=== PATIENT | male | born 1950 | race Caucasian/White ===

== ENCOUNTER 2024-08-12 17:35 | Inpatient (IN) ==
[2024-08-12 18:46] LABS: ALT/SGPT 16 U/L (<40); AST/SGOT 36 U/L (<40); Albumin 4.2 gm/dL (3.2-5.2); Albumin/Globulin Ratio 1.1 (1.0-2.3); Alkaline Phosphatase 96 U/L (39-117); Bilirubin,Total 0.4 mg/dL (0.1-1.0); Blood Urea Nitrogen 14 mg/dL (8-23); Calcium 9.8 mg/dL (8.6-10.4); Carbon Dioxide 26 mmol/L (22-30); Chloride 96 mmol/L (96-108); Globulin 3.9 gm/dL (2.2-3.7); Glomerular Filtration Rate 100; Glucose 127 mg/dL (70-105); Sodium 137 mmol/L (133-145)
[2024-08-12 18:58] LABS: Basophils # (Auto) 0.05 K/mcL (0.00-0.30); Basophils % (Auto) 0.5 % (0.0-2.0); Eosinophils # (Auto) 0.18 K/mcL (0.00-0.70); Eosinophils % (Auto) 1.7 % (0.0-7.0); Hematocrit 38.9 % (40.1-51.0); Hemoglobin 12.5 g/dL (13.7-17.5); Lymphocytes # (Auto) 1.21 K/mcL (1.50-4.80); Lymphocytes % (Auto) 11.5 % (15.5-49.0); Mean Cell Volume 87.4 fL (80.0-100.0); Mean Corpuscular HGB Conc 32.1 g/dL (31.0-36.0); Mean Platelet Volume 10.5 fL (8.8-12.5); Monocytes # (Auto) 0.89 K/mcL (0.10-0.90); Monocytes % (Auto) 8.5 % (1.0-12.0); Neutrophils % (Auto) 77.6 % (38.0-78.0); Platelet Count 247 K/mcL (140-440); RBC 4.45 M/mcL (4.63-6.08); Red Cell Distribution Width 15.4 % (11.5-14.5); WBC 10.5 K/mcL (4.5-11.0)
[2024-08-12 22:14] LABS: Appearance,Urine CLEAR (Clear); Bilirubin,Urine Negative (Negative); Color,Urine YELLOW; Glucose,Urine (UA) Negative (Negative); Ketones,Urine 5 mg/dL (Negative); Leukocyte Esterase,Urine Negative /uL (Negative); Mucus,Urine FEW /hpf; Nitrate,Urine Negative (Negative); Protein,Urine Negative (Negative); Specific Gravity,Urine 1.015 (1.000-1.035); Urine Blood Negative (Negative); Urine RBC 1 /hpf (0-3); Urine Squamous Epithelial Cell < 1 /hpf (0-4); Urine WBC < 1 /hpf (0-4); Urobilinogen,Urine Negative
[2024-08-12] MEDS ORDERED: ONDANSETRON 4 MG/2 ML VIAL IV PRN (22:49)
[2024-08-12] MEDS ORDERED: DEXTROSE 31 GM ORAL.SUSP PO PRN (22:49)
[2024-08-12] MEDS ORDERED: DEXTROSE 50% 50 ML VIAL IV PRN (22:49)
[2024-08-12] MEDS: DOCUSATE SODIUM 100 MG CAPSULE PO SCH (22:59)
[2024-08-12] MEDS: INSULIN LISPRO 1 UNIT/0.01 ML UNIT SQ SCH (22:59)
[2024-08-12] MEDS: SENNOSIDES 1 TABLET PO SCH (23:00)
[2024-08-12] MEDS: 0.9 % SODIUM CHLORIDE 10 ML SYRINGE IV SCH (23:00)
[2024-08-13 06:36] LABS: Basophils # (Auto) 0.05 K/mcL (0.00-0.30); Basophils % (Auto) 0.7 % (0.0-2.0); Eosinophils % (Auto) 2.6 % (0.0-7.0); Hematocrit 35.5 % (40.1-51.0); Hemoglobin 11.5 g/dL (13.7-17.5); Lymphocytes % (Auto) 18.5 % (15.5-49.0); Mean Corpuscular HGB Conc 32.4 g/dL (31.0-36.0); Mean Platelet Volume 10.8 fL (8.8-12.5); Monocytes % (Auto) 9.2 % (1.0-12.0); Neutrophils % (Auto) 68.7 % (38.0-78.0); Platelet Count 232 K/mcL (140-440); RBC 4.13 M/mcL (4.63-6.08); Red Cell Distribution Width 15.3 % (11.5-14.5); WBC 7.6 K/mcL (4.5-11.0)
[2024-08-13] MEDS ORDERED: DEXTROSE 50% 50 ML SYRINGE IV PRN (06:38)
[2024-08-13] MEDS ORDERED: DEXTROSE 50% 50 ML VIAL IV PRN (07:24)
[2024-08-13] MEDS ORDERED: DEXTROSE 31 GM ORAL.SUSP PO PRN (07:24)
[2024-08-13 07:38] LABS: Estimated Average Glucose(eAG) 160 mg/dL; Hemoglobin A1C 7.2 % Hgb (4.0-6.0)
[2024-08-13] MEDS: INSULIN LISPRO 1 UNIT/0.01 ML UNIT SQ SCH (08:49)
[2024-08-13] MEDS: DIVALPROEX SODIUM ER 250 MG TABLET PO SCH ×2 (21:18→21:30)
[2024-08-13] MEDS: ARIPIPRAZOLE 5 MG TABLET PO ONE (21:18)
[2024-08-13] MEDS: ARIPIPRAZOLE 10 MG TABLET PO SCH (21:31)
[2024-08-14] MEDS: INSULIN GLARGINE, HUMAN 1 UNIT/0.01 ML SQ SCH (08:36)
[2024-08-14] MEDS: VENLAFAXINE 150 MG CAP.XL.24H PO SCH (08:37)
[2024-08-14] MEDS: ATORVASTATIN 40 MG TABLET PO SCH (08:37)
[2024-08-14] MEDS: ARIPIPRAZOLE 5 MG TABLET PO SCH (08:37)
[2024-08-14] MEDS: ASPIRIN 81 MG TAB.CHEW PO SCH (08:37)
[2024-08-14] MEDS: NICOTINE 7 MG PATCH TOPICAL SCH (09:16)
[2024-08-15 05:40] LABS: Basophils # (Auto) 0.07 K/mcL (0.00-0.30); Basophils % (Auto) 0.7 % (0.0-2.0); Eosinophils # (Auto) 0.24 K/mcL (0.00-0.70); Eosinophils % (Auto) 2.3 % (0.0-7.0); Hematocrit 36.7 % (40.1-51.0); Hemoglobin 11.8 g/dL (13.7-17.5); Lymphocytes # (Auto) 2.08 K/mcL (1.50-4.80); Mean Cell Volume 87.4 fL (80.0-100.0); Mean Corpuscular HGB Conc 32.2 g/dL (31.0-36.0); Monocytes % (Auto) 7.7 % (1.0-12.0); Platelet Count 234 K/mcL (140-440); WBC 10.4 K/mcL (4.5-11.0)
[2024-08-15 05:57] LABS: Blood Urea Nitrogen 15 mg/dL (8-23); Calcium 9.1 mg/dL (8.6-10.4); Carbon Dioxide 26 mmol/L (22-30); Chloride 98 mmol/L (96-108); Glomerular Filtration Rate 100; Glucose 140 mg/dL (70-105); Potassium 4.1 mmol/L (3.3-5.1); Sodium 134 mmol/L (133-145)
[2024-08-16 06:28] LABS: Basophils # (Auto) 0.08 K/mcL (0.00-0.30); Basophils % (Auto) 0.9 % (0.0-2.0); Eosinophils # (Auto) 0.21 K/mcL (0.00-0.70); Eosinophils % (Auto) 2.2 % (0.0-7.0); Hematocrit 37.1 % (40.1-51.0); Hemoglobin 12.1 g/dL (13.7-17.5); Lymphocytes # (Auto) 1.72 K/mcL (1.50-4.80); Lymphocytes % (Auto) 18.4 % (15.5-49.0); Mean Cell Volume 85.7 fL (80.0-100.0); Mean Corpuscular HGB Conc 32.6 g/dL (31.0-36.0); Monocytes # (Auto) 0.77 K/mcL (0.10-0.90); Monocytes % (Auto) 8.2 % (1.0-12.0); Neutrophils % (Auto) 69.9 % (38.0-78.0); Platelet Count 238 K/mcL (140-440); RBC 4.33 M/mcL (4.63-6.08); Red Cell Distribution Width 14.9 % (11.5-14.5); WBC 9.4 K/mcL (4.5-11.0)
[2024-08-16 07:21] LABS: Blood Urea Nitrogen 19 mg/dL (8-23); Carbon Dioxide 24 mmol/L (22-30); Chloride 102 mmol/L (96-108); Glomerular Filtration Rate 100; Glucose 154 mg/dL (70-105); Potassium 4.1 mmol/L (3.3-5.1); Sodium 137 mmol/L (133-145)
[2024-08-17] MEDS: ACETAMINOPHEN 325 MG TABLET PO PRN (18:48)
[2024-08-17] MEDS: hydrOXYzine 25 MG TABLET PO ONE (20:45)
[2024-08-17] MEDS: MELATONIN 3 MG TABLET PO SCH (20:45)
== END 2024-08-19 11:38 | DRG 179 ==
LOC: MEDSUR 17:35 → ED 17:35 → MEDSUR 23:21
PROVIDERS: ADMIT Internal Medicine; ATTEND Student in an Organized Health Care Education/Training Program

== ENCOUNTER 2024-09-29 15:42 | Inpatient (IN) ==
[2024-09-29] MEDS ORDERED: IOPAMIDOL 100 ML BOTTLE IV ONE (15:43)
[2024-09-29] MEDS: 0.9 % SODIUM CHLORIDE 1,000 ML IV ONE (16:21)
[2024-09-29] MEDS: cefTRIAXone 1 GM VIAL IV ONE ×2 (17:01→22:20)
[2024-09-29] MEDS: VANCOMYCIN 1,500 MG in 0.9 % SODIUM CHLORIDE 500 ML IV ONE (18:00)
[2024-09-29] MEDS: VANCOMYCIN 1,000 MG in 0.9 % SODIUM CHLORIDE 250 ML IV ONE (18:11)
[2024-09-29] MEDS ORDERED: VANCOMYCIN PER PHARMACY IV SCH (19:54)
[2024-09-29] MEDS ORDERED: SENNOSIDES 1 TABLET PO PRN (21:38)
[2024-09-29] MEDS ORDERED: LACTULOSE 20 GM/30 ML ORAL.SOL PO PRN (21:38)
[2024-09-29] MEDS ORDERED: ONDANSETRON 4 MG/2 ML VIAL IV PRN (21:38)
[2024-09-29] MEDS: LACTATED RINGERS 1,000 ML IV SCH ×2 (21:54→23:00)
[2024-09-29 22:07] LABS: C-Reactive Protein 9.23 mg/dL (0.03-0.80)
[2024-09-29] MEDS: DOCUSATE SODIUM 100 MG CAPSULE PO SCH (22:16)
[2024-09-29] MEDS: HEPARIN 5,000 UNIT/ML VIAL SQ SCH (22:20)
[2024-09-29] MEDS: 0.9 % SODIUM CHLORIDE 10 ML SYRINGE IV SCH (22:20)
[2024-09-29] MEDS: ACETAMINOPHEN 650 MG/65 ML BAG IV PRN (23:12)
[2024-09-30] MEDS ORDERED: VANCOMYCIN 1,000 MG in 0.9 % SODIUM CHLORIDE 250 ML IV ONE (07:00)
[2024-09-30 07:01] LABS: Appearance,Urine Clear (Clear); Bilirubin,Urine Negative (Negative); Color,Urine Yellow; Glucose,Urine (UA) Negative (Negative); Ketones,Urine 80 mg/dL (Negative); Leukocyte Esterase,Urine Negative /uL (Negative); Nitrate,Urine Negative (Negative); PH,Urine 7.5 (5.0-9.0); Protein,Urine 100 mg/dL (Negative); Urine Blood Trace-intact ery/mcL (Negative); Urine RBC 10 /hpf (0-3); Urine Squamous Epithelial Cell 2 /hpf (0-4); Urine WBC 0 /hpf (0-4); Urobilinogen,Urine Normal
[2024-09-30 07:09] LABS: Basophils # (Auto) 0.15 K/mcL (0.00-0.30); Basophils % (Auto) 0.7 % (0.0-2.0); Eosinophils # (Auto) 0.11 K/mcL (0.00-0.70); Eosinophils % (Auto) 0.5 % (0.0-7.0); Hematocrit 34.7 % (40.1-51.0); Hemoglobin 11.1 g/dL (13.7-17.5); Lymphocytes # (Auto) 1.69 K/mcL (1.50-4.80); Lymphocytes % (Auto) 8.1 % (15.5-49.0); Mean Cell Volume 89.9 fL (80.0-100.0); Monocytes # (Auto) 1.96 K/mcL (0.10-0.90); Monocytes % (Auto) 9.4 % (1.0-12.0); Neutrophils % (Auto) 80.7 % (38.0-78.0); Platelet Count 243 K/mcL (140-440); RBC 3.86 M/mcL (4.63-6.08); Red Cell Distribution Width 16.4 % (11.5-14.5); WBC 20.9 K/mcL (4.5-11.0)
[2024-09-30 07:16] LABS: Phosphorous 2.6 mg/dL (2.5-4.5)
[2024-09-30 07:18] LABS: ALT/SGPT 14 U/L (<40); AST/SGOT 17 U/L (<40); Albumin 3.6 gm/dL (3.2-5.2); Albumin/Globulin Ratio 0.8 (1.0-2.3); Alkaline Phosphatase 68 U/L (39-117); Bilirubin,Total 0.5 mg/dL (0.1-1.0); Blood Urea Nitrogen 21 mg/dL (8-23); Calcium 9.2 mg/dL (8.6-10.4); Carbon Dioxide 28 mmol/L (22-30); Chloride 99 mmol/L (96-108); Globulin 4.5 gm/dL (2.2-3.7); Glomerular Filtration Rate 108; Glucose 158 mg/dL (70-105); Potassium 4.4 mmol/L (3.3-5.1); Sodium 137 mmol/L (133-145)
[2024-09-30 08:00] LABS: Hemoglobin A1C 6.3 % Hgb (4.0-6.0)
[2024-09-30] MEDS: cefTRIAXone 2 GM in DEXTROSE 5% IN WATER 50 ML IV SCH (11:52)
[2024-09-30] MEDS: AMPICILLIN SODIUM/SULBACTAM NA 3 GM in 0.9 % SODIUM CHLORIDE 100 ML IV SCH (13:22)
[2024-10-01 07:02] LABS: Basophils # (Auto) 0.12 K/mcL (0.00-0.30); Basophils % (Auto) 0.7 % (0.0-2.0); Eosinophils # (Auto) 0.21 K/mcL (0.00-0.70); Eosinophils % (Auto) 1.3 % (0.0-7.0); Hemoglobin 10.5 g/dL (13.7-17.5); Lymphocytes # (Auto) 1.69 K/mcL (1.50-4.80); Lymphocytes % (Auto) 10.4 % (15.5-49.0); Mean Cell Volume 88.9 fL (80.0-100.0); Mean Corpuscular HGB Conc 31.8 g/dL (31.0-36.0); Mean Platelet Volume 11.7 fL (8.8-12.5); Monocytes # (Auto) 1.39 K/mcL (0.10-0.90); Monocytes % (Auto) 8.5 % (1.0-12.0); Neutrophils % (Auto) 78.8 % (38.0-78.0); Platelet Count 226 K/mcL (140-440); RBC 3.71 M/mcL (4.63-6.08); WBC 16.3 K/mcL (4.5-11.0)
[2024-10-01 07:04] LABS: ALT/SGPT 16 U/L (<40); AST/SGOT 18 U/L (<40); Albumin 3.3 gm/dL (3.2-5.2); Albumin/Globulin Ratio 0.8 (1.0-2.3); Alkaline Phosphatase 64 U/L (39-117); Bilirubin,Total 0.4 mg/dL (0.1-1.0); Blood Urea Nitrogen 14 mg/dL (8-23); Calcium 8.7 mg/dL (8.6-10.4); Carbon Dioxide 26 mmol/L (22-30); Chloride 98 mmol/L (96-108); Globulin 4.1 gm/dL (2.2-3.7); Glomerular Filtration Rate 118; Glucose 150 mg/dL (70-105); Potassium 3.8 mmol/L (3.3-5.1); Sodium 137 mmol/L (133-145)
[2024-10-01] MEDS: ARIPIPRAZOLE 5 MG TABLET PO SCH (09:37)
[2024-10-01] MEDS: DIVALPROEX 125 MG CAP.SPRINK PO SCH (09:37)
[2024-10-01] MEDS: ASPIRIN 81 MG TAB.CHEW PO SCH (09:37)
[2024-10-01] MEDS: CYANOCOBALAMIN (VITAMIN B-12) 500 MCG TABLET PO SCH (09:37)
[2024-10-01] MEDS: ATORVASTATIN 40 MG TABLET PO SCH (09:37)
[2024-10-01] MEDS: VENLAFAXINE 150 MG CAP.XL.24H PO SCH (10:33)
[2024-10-01] MEDS: PROPRANOLOL 80 MG CAP.XL.24H PO SCH (11:29)
[2024-10-01] MEDS: 0.9 % SODIUM CHLORIDE 1,000 ML IV SCH (13:09)
[2024-10-01] MEDS: INSULIN GLARGINE, HUMAN 1 UNIT/0.01 ML SQ SCH (20:34)
[2024-10-01] MEDS ORDERED: DEXTROSE 50% 50 ML VIAL IV PRN (23:21)
[2024-10-01] MEDS ORDERED: DEXTROSE 31 GM ORAL.SUSP PO PRN (23:21)
[2024-10-02 05:57] LABS: Basophils % (Auto) 0.9 % (0.0-2.0); Eosinophils # (Auto) 0.48 K/mcL (0.00-0.70); Eosinophils % (Auto) 4.2 % (0.0-7.0); Hematocrit 30.6 % (40.1-51.0); Hemoglobin 9.8 g/dL (13.7-17.5); Lymphocytes # (Auto) 1.73 K/mcL (1.50-4.80); Lymphocytes % (Auto) 15.2 % (15.5-49.0); Mean Cell Volume 88.4 fL (80.0-100.0); Mean Platelet Volume 11.1 fL (8.8-12.5); Monocytes # (Auto) 0.88 K/mcL (0.10-0.90); Monocytes % (Auto) 7.8 % (1.0-12.0); Neutrophils % (Auto) 71.6 % (38.0-78.0); Platelet Count 226 K/mcL (140-440); RBC 3.46 M/mcL (4.63-6.08); Red Cell Distribution Width 15.8 % (11.5-14.5); WBC 11.4 K/mcL (4.5-11.0)
[2024-10-02 06:16] LABS: C-Reactive Protein 7.77 mg/dL (0.03-0.80)
[2024-10-02 06:30] LABS: ALT/SGPT 22 U/L (<40); AST/SGOT 23 U/L (<40); Albumin 3.1 gm/dL (3.2-5.2); Albumin/Globulin Ratio 0.8 (1.0-2.3); Alkaline Phosphatase 57 U/L (39-117); Bilirubin,Total 0.2 mg/dL (0.1-1.0); Blood Urea Nitrogen 9 mg/dL (8-23); Calcium 8.3 mg/dL (8.6-10.4); Carbon Dioxide 27 mmol/L (22-30); Chloride 102 mmol/L (96-108); Globulin 3.9 gm/dL (2.2-3.7); Glomerular Filtration Rate 118; Glucose 143 mg/dL (70-105); Potassium 3.6 mmol/L (3.3-5.1); Sodium 138 mmol/L (133-145)
[2024-10-02] MEDS: INSULIN LISPRO 1 UNIT/0.01 ML UNIT SQ SCH (07:01)
[2024-10-02] MEDS: POTASSIUM PHOSPHATE 40 MEQ in DEXTROSE 5% IN WATER 500 ML IV ONE (08:39)
[2024-10-02] MEDS ORDERED: VANCOMYCIN PER PHARMACY IV SCH (08:44)
[2024-10-02] MEDS: VANCOMYCIN 1,000 MG in 0.9 % SODIUM CHLORIDE 250 ML IV SCH (09:39)
[2024-10-02] MEDS: INSULIN GLARGINE, HUMAN 1 UNIT/0.01 ML SQ SCH (20:46)
[2024-10-03 06:24] LABS: Basophils % (Auto) 1.3 % (0.0-2.0); Eosinophils # (Auto) 0.55 K/mcL (0.00-0.70); Eosinophils % (Auto) 6.9 % (0.0-7.0); Hematocrit 31.6 % (40.1-51.0); Lymphocytes # (Auto) 1.75 K/mcL (1.50-4.80); Mean Cell Volume 89.8 fL (80.0-100.0); Mean Corpuscular HGB Conc 31.6 g/dL (31.0-36.0); Monocytes # (Auto) 0.77 K/mcL (0.10-0.90); Monocytes % (Auto) 9.7 % (1.0-12.0); Neutrophils % (Auto) 59.6 % (38.0-78.0); Platelet Count 266 K/mcL (140-440); RBC 3.52 M/mcL (4.63-6.08); Red Cell Distribution Width 15.9 % (11.5-14.5)
[2024-10-03 07:01] LABS: ALT/SGPT 26 U/L (<40); AST/SGOT 23 U/L (<40); Albumin 3.2 gm/dL (3.2-5.2); Albumin/Globulin Ratio 0.8 (1.0-2.3); Alkaline Phosphatase 57 U/L (39-117); Bilirubin,Direct < 0.2 mg/dL (0-0.3); Bilirubin,Total < 0.2 mg/dL (0.1-1.0); Blood Urea Nitrogen 12 mg/dL (8-23); C-Reactive Protein 4.14 mg/dL (0.03-0.80); Calcium 8.4 mg/dL (8.6-10.4); Carbon Dioxide 28 mmol/L (22-30); Chloride 105 mmol/L (96-108); Glomerular Filtration Rate 108; Glucose 116 mg/dL (70-105); Lactate Dehydrogenase 116 U/L (135-225); Phosphorous 2.8 mg/dL (2.5-4.5); Potassium 4.3 mmol/L (3.3-5.1); Sodium 142 mmol/L (133-145); Triglycerides 69 mg/dL (<150); Uric Acid 3.4 mg/dL (2.5-8.0)
[2024-10-03] MEDS: LOSARTAN 50 MG TABLET PO SCH (09:38)
[2024-10-03] MEDS: CHLORHEXIDINE GLUCONATE 15 ML UDC SWABMOUTH SCH (22:19)
== END 2024-10-05 16:35 | DRG 872 ==
LOC: ED 15:42 → ICU 21:37
PROVIDERS: ADMIT Student in an Organized Health Care Education/Training Program; ATTEND Internal Medicine

== ENCOUNTER 2025-08-25 18:13 | Inpatient (IN) ==
[2025-08-25] MEDS ORDERED: IOPAMIDOL 100 ML BOTTLE IV ONE (18:14)
[2025-08-25] MEDS: LACTATED RINGERS 2,000 ML IV ONE (19:07)
[2025-08-25 20:12] LABS: Basophils # (Auto) 0.12 K/mcL (0.00-0.30); Basophils % (Auto) 0.6 % (0.0-2.0); Eosinophils # (Auto) 0.21 K/mcL (0.00-0.70); Eosinophils % (Auto) 1.1 % (0.0-7.0); Hematocrit 29.0 % (40.1-51.0); Hemoglobin 9.3 g/dL (13.7-17.5); Lymphocytes # (Auto) 2.33 K/mcL (1.50-4.80); Lymphocytes % (Auto) 12.1 % (15.5-49.0); Mean Corpuscular HGB Conc 32.1 g/dL (31.0-36.0); Monocytes # (Auto) 1.64 K/mcL (0.10-0.90); Monocytes % (Auto) 8.5 % (1.0-12.0); Neutrophils % (Auto) 77.3 % (38.0-78.0); Platelet Count 173 K/mcL (140-440); RBC 3.20 M/mcL (4.63-6.08); WBC 19.3 K/mcL (4.5-11.0)
[2025-08-25 20:24] LABS: ALT/SGPT 11 U/L (<40); AST/SGOT 20 U/L (<40); Albumin 3.5 gm/dL (3.2-5.2); Albumin/Globulin Ratio 1.1 (1.0-2.3); Alkaline Phosphatase 55 U/L (39-117); Anion Gap 12.0 (8.0-16.0); Bilirubin,Total 0.3 mg/dL (0.1-1.0); Blood Urea Nitrogen 37 mg/dL (8-23); Calcium 8.9 mg/dL (8.6-10.4); Carbon Dioxide 26 mmol/L (22-30); Chloride 101 mmol/L (96-108); Globulin 3.2 gm/dL (2.2-3.7); Glucose 114 mg/dL (70-105); Potassium 4.3 mmol/L (3.3-5.1); Sodium 139 mmol/L (133-145)
[2025-08-25] MEDS: cefTRIAXone 1 GM VIAL IV ONE (21:06)
[2025-08-25 22:19] LABS: Bacteria,Urine 0 /hpf (0); Bilirubin,Urine NEGATIVE (Negative); Color,Urine YELLOW; Glucose,Urine (UA) NEGATIVE (Negative); Ketones,Urine TRACE mg/dL (Negative); Leukocyte Esterase,Urine NEGATIVE /uL (Negative); Mucus,Urine Mod /hpf; PH,Urine 6.5 (5.0-9.0); Protein,Urine TRACE mg/dL (Negative); Specific Gravity,Urine 1.020 (1.000-1.035); Urine Amorphous Crystals Few /hpf; Urobilinogen,Urine 1.0 mg/dL
[2025-08-25] MEDS: NOREPINEPHRINE BITARTRATE 16 MG in 0.9 % SODIUM CHLORIDE 234 ML IV SCH (23:38)
[2025-08-25] MEDS: 0.9 % SODIUM CHLORIDE 250 ML IV SCH (23:38)
[2025-08-25] MEDS: NOREPINEPHRINE 250 ML IV SCH (23:51)
[2025-08-26] MEDS: 0.9 % SODIUM CHLORIDE 250 ML IV SCH (00:03)
[2025-08-26] MEDS: AZITHROMYCIN 500 MG in DEXTROSE 5% IN WATER 250 ML IV ONE (00:18)
[2025-08-26] MEDS ORDERED: IPRATROPIUM/ALBUTEROL 3 ML AMPUL.NEB NEB PRN ×2 (00:34→07:46)
[2025-08-26] MEDS ORDERED: ONDANSETRON 4 MG/2 ML VIAL IV PRN ×2 (00:34→07:46)
[2025-08-26] MEDS ORDERED: ACETAMINOPHEN 325 MG TABLET PO PRN ×2 (00:34→07:46)
[2025-08-26] MEDS: VANCOMYCIN 1,000 MG in 0.9 % SODIUM CHLORIDE 250 ML IV ONE (01:30)
[2025-08-26] MEDS ORDERED: METOCLOPRAMIDE 10 MG/2 ML VIAL IV PRN (07:46)
[2025-08-26] MEDS ORDERED: POTASSIUM CHLORIDE 20 MEQ TABLET PO PRN ×2 (07:46)
[2025-08-26] MEDS ORDERED: DEXTROSE 31 GM ORAL.SUSP PO PRN (07:46)
[2025-08-26] MEDS ORDERED: DEXTROSE 50% 50 ML VIAL IV PRN (07:46)
[2025-08-26] MEDS ORDERED: MAGNESIUM SULFATE 2 GM/50 ML BAG IV PRN (07:46)
[2025-08-26] MEDS ORDERED: POTASSIUM CHLORIDE 40 MEQ in DEXTROSE 5% IN WATER 500 ML IV PRN (07:46)
[2025-08-26] MEDS ORDERED: VANCOMYCIN PER PHARMACY IV SCH (08:00)
[2025-08-26] MEDS: 0.9 % SODIUM CHLORIDE 1,000 ML IV ONE (08:42)
[2025-08-26 08:53] LABS: ALT/SGPT 12 U/L (<40); AST/SGOT 22 U/L (<40); Albumin 3.2 gm/dL (3.2-5.2); Albumin/Globulin Ratio 1.0 (1.0-2.3); Alkaline Phosphatase 52 U/L (39-117); Anion Gap 7.0 (8.0-16.0); Bilirubin,Direct < 0.2 mg/dL (0-0.3); Bilirubin,Total 0.3 mg/dL (0.1-1.0); Blood Urea Nitrogen 22 mg/dL (8-23); Calcium 8.5 mg/dL (8.6-10.4); Carbon Dioxide 26 mmol/L (22-30); Chloride 102 mmol/L (96-108); Globulin 3.3 gm/dL (2.2-3.7); Glucose 135 mg/dL (70-105); Phosphorous 2.2 mg/dL (2.5-4.5); Potassium 4.2 mmol/L (3.3-5.1); Sodium 135 mmol/L (133-145); Triglycerides 88 mg/dL (<150); Uric Acid 4.5 mg/dL (2.5-8.0)
[2025-08-26] MEDS: ARIPIPRAZOLE 5 MG TABLET PO SCH (09:23)
[2025-08-26] MEDS: DIVALPROEX 125 MG CAP.SPRINK PO SCH (09:23)
[2025-08-26] MEDS: ENOXAPARIN 40 MG/0.4 ML SYRINGE SQ SCH (09:23)
[2025-08-26] MEDS: TAMSULOSIN 0.4 MG CAPSULE PO SCH (09:23)
[2025-08-26] MEDS: VENLAFAXINE 150 MG CAP.XL.24H PO SCH (09:23)
[2025-08-26] MEDS: POLYETHYLENE GLYCOL 3350 17 GM PACKET PO ONE (09:23)
[2025-08-26] MEDS: DOCUSATE SODIUM 100 MG CAPSULE PO SCH (09:23)
[2025-08-26] MEDS: cefTRIAXone 1 GM VIAL IV SCH (09:24)
[2025-08-26] MEDS: PROPRANOLOL 60 MG CAP.XL.24H PO SCH (10:23)
[2025-08-26] MEDS: INSULIN LISPRO 1 UNIT/0.01 ML UNIT SQ SCH (12:22)
[2025-08-26] MEDS: VANCOMYCIN 1,000 MG in 0.9 % SODIUM CHLORIDE 250 ML IV SCH (12:29)
[2025-08-26] MEDS: LACTATED RINGERS 500 ML IV ONE (13:43)
[2025-08-26] MEDS: AZITHROMYCIN 500 MG in DEXTROSE 5% IN WATER 250 ML IV SCH (14:18)
[2025-08-27 05:32] LABS: Basophils # (Auto) 0.08 K/mcL (0.00-0.30); Basophils % (Auto) 0.8 % (0.0-2.0); Eosinophils # (Auto) 0.22 K/mcL (0.00-0.70); Eosinophils % (Auto) 2.2 % (0.0-7.0); Hematocrit 30.3 % (40.1-51.0); Hemoglobin 9.5 g/dL (13.7-17.5); Lymphocytes # (Auto) 1.77 K/mcL (1.50-4.80); Lymphocytes % (Auto) 17.8 % (15.5-49.0); Mean Corpuscular HGB Conc 31.4 g/dL (31.0-36.0); Monocytes # (Auto) 0.75 K/mcL (0.10-0.90); Monocytes % (Auto) 7.5 % (1.0-12.0); Neutrophils % (Auto) 71.4 % (38.0-78.0); Platelet Count 174 K/mcL (140-440); RBC 3.27 M/mcL (4.63-6.08); WBC 10.0 K/mcL (4.5-11.0)
[2025-08-27 05:58] LABS: ALT/SGPT 11 U/L (<40); AST/SGOT 23 U/L (<40); Albumin 3.1 gm/dL (3.2-5.2); Albumin/Globulin Ratio 0.9 (1.0-2.3); Alkaline Phosphatase 50 U/L (39-117); Anion Gap 9.0 (8.0-16.0); Bilirubin,Direct < 0.2 mg/dL (0-0.3); Bilirubin,Total 0.3 mg/dL (0.1-1.0); Blood Urea Nitrogen 13 mg/dL (8-23); Calcium 8.5 mg/dL (8.6-10.4); Carbon Dioxide 23 mmol/L (22-30); Chloride 104 mmol/L (96-108); Globulin 3.3 gm/dL (2.2-3.7); Glucose 163 mg/dL (70-105); Phosphorous 2.6 mg/dL (2.5-4.5); Potassium 4.3 mmol/L (3.3-5.1); Sodium 136 mmol/L (133-145); Triglycerides 93 mg/dL (<150); Uric Acid 3.9 mg/dL (2.5-8.0)
[2025-08-27] MEDS: PANTOPRAZOLE 40 MG TABLET PO SCH (07:20)
[2025-08-27] MEDS: LACTATED RINGERS 250 ML IV ONE (09:25)
[2025-08-27] MEDS: POLYETHYLENE GLYCOL 3350 17 GM PACKET PO PRN (09:30)
[2025-08-28 06:18] LABS: ALT/SGPT 12 U/L (<40); AST/SGOT 19 U/L (<40); Albumin 3.2 gm/dL (3.2-5.2); Albumin/Globulin Ratio 1.0 (1.0-2.3); Alkaline Phosphatase 89 U/L (39-117); Anion Gap 8.0 (8.0-16.0); Bilirubin,Direct 0.2 mg/dL (<0.3); Bilirubin,Total 0.3 mg/dL (0.1-1.0); Blood Urea Nitrogen 11 mg/dL (8-23); Calcium 8.7 mg/dL (8.6-10.4); Carbon Dioxide 26 mmol/L (22-30); Chloride 104 mmol/L (96-108); Globulin 3.3 gm/dL (2.2-3.7); Glucose 137 mg/dL (70-105); Phosphorous 3.4 mg/dL (2.5-4.5); Potassium 4.1 mmol/L (3.3-5.1); Sodium 138 mmol/L (133-145); Triglycerides 111 mg/dL (<150); Uric Acid 4.0 mg/dL (2.5-8.0)
[2025-08-29] MEDS ORDERED: BISACODYL 10 MG SUPP.RECT PR PRN (11:32)
[2025-08-29] MEDS ORDERED: FLEETS ADULT 1 DOSE ENEMA PR PRN (11:32)
[2025-08-29] MEDS ORDERED: LACTULOSE 20 GM/30 ML ORAL.SOL PR PRN (20:23)
[2025-08-29] MEDS: SENNOSIDES 1 TABLET PO PRN (20:48)
== END 2025-08-30 18:26 | disposition home or self-care (01) | DRG 871 ==
LOC: ED 18:13 → ICU 08-26 01:33
PROVIDERS: ADMIT Internal Medicine; ATTEND Internal Medicine